=== PATIENT | male | born 1995 | race Caucasian/White ===

== ENCOUNTER 2017-11-30 14:09 | Emergency (ER) | payer MEDICAID ==
[~2017-11-30] VITALS: Ht 154.9 cm; Wt 145.1 kg
[2017-11-30 14:29] VITALS: BP 138/78
--- NOTE | 2017-11-30 14:32 | NUR ---
PT TRIAGED. AMBULATED TO ER LOBBY WAITING FOR A BED. ERMD NOTIFIED OF PATIENT STATUS.
--- NOTE | 2017-11-30 16:05 | NUR ---
PT TRIAGED, WAITING FOR ER BED. ERMD AWARE OF PATIENT STATUS.
--- NOTE | 2017-11-30 18:05 | NUR ---
PT TRIAGED. WAITING FOR ER BED. ERMD NOTIFIED OF PATIENT STATUS.
--- NOTE | 2017-11-30 18:49 | NUR ---
PATIENT LEFT WITHOUT BEING SEEN BY DR. VALLEJO. NO FURTHER CARE PROVIDED FOR PATIENT.
== END 2017-11-30 18:49 | disposition left against medical advice (07) ==
LOC: MED 14:09
DX: R11.10 Vomiting, unspecified (principal); Z53.21 Procedure and treatment not carried out due to patient leaving prior to being seen by health care provider

== ENCOUNTER 2018-06-09 11:13 | Emergency (ER) | payer MEDICARE ==
[~2018-06-09] VITALS: Ht 154.9 cm; Wt 145.6 kg
[2018-06-09 11:27] VITALS: BP 179/79
[2018-06-09] MEDS: PANTOPRAZOLE 40 MG TABEC PO ONE (12:39)
[2018-06-09 13:16] LABS: HEMATOCRIT 42.5 % (36-52); MEAN CORPUSCULAR HEMOGLOBIN 28 pg (27-31); MEAN CORPUSCULAR HGB CONC 33 g/dL (33-37); MEAN CORPUSCULAR VOLUME 84.6 fL (80-94); PLATELET COUNT (AUTO) 152 K/uL (140-450); RED BLOOD CELL COUNT(AUTO) 5.02 MIL/uL (4.20-6.10); RED CELL DISTRIBUTION WIDTH 15.2 % (11.6-13.7); WHITE BLOOD COUNT (AUTO) 6.7 K/uL (4.8-10.8)
[2018-06-09 13:33] LABS: LYMPHOCYTES % (MANUAL) 22 % (20-46); MONOCYTES % (MANUAL) 9 % (5-12)
[2018-06-09 13:37] LABS: ALBUMIN 3.4 g/dL (3.4-5.0); ANION GAP 5.4 (8-16); CREATININE 0.9 mg/dL (0.7-1.3); POTASSIUM 3.4 mmol/L (3.5-5.1); TOTAL BILIRUBIN 1.3 mg/dL (0.0-1.0)
[2018-06-09 14:48] LABS: BILIRUBIN,URINE 2+ (NEGATIVE); BLOOD, URINE NEGATIVE (NEGATIVE); LEUKOCYTE ESTERASE ,URINE 1+ (NEGATIVE); NITRITE, URINE NEGATIVE (NEGATIVE); PH,URINE 6.5 (5.0-9.0); UGLUCOSE NEGATIVE (NEGATIVE)
[2018-06-09 14:56] LABS: APPEARANCE,URINE CLOUDY (CLEAR); COLOR,URINE AMBER (YELLOW)
[2018-06-09 14:57] LABS: RBC,URINE NONE SEEN /HPF (0-5)
[2018-06-09 14:58] LABS: WBC,URINE 20-60 /HPF (0-5)
[2018-06-09 16:27] VITALS: BP 110/53
== END 2018-06-09 16:26 | disposition home or self-care (01) ==
LOC: MED 11:13
DX: K29.70 Gastritis, unspecified, without bleeding (principal); L03.115 Cellulitis of right lower limb; N39.0 Urinary tract infection, site not specified
CPT/HCPCS: 36415; 76705; 80053; 81001; 83605; 83690; 85025; 87040; 87086; 99285; Q0092

== ENCOUNTER 2018-10-11 12:31 | Emergency (ER) | payer MEDICARE ==
[~2018-10-11] VITALS: Ht 160 cm; Wt 149.2 kg
[2018-10-11 13:03] VITALS: BP 135/67
[2018-10-11] MEDS ORDERED: CLINDAMYCIN 600 MG/4 ML VIAL IM ONE (13:50)
[2018-10-11] MEDS ORDERED: NEOMYCIN/POLYMYXIN/BACITRACIN 0.9 GM/1 PKT TP ONE (13:50)
[2018-10-11] MEDS ORDERED: DEXAMETHASONE 10 MG/ML VIAL IM ONE (13:50)
[2018-10-11] MEDS ORDERED: IBUPROFEN 600 MG TAB PO ONE (13:50)
[2018-10-11] MEDS ORDERED: traMADol 50 MG TAB PO ONE (13:50)
--- NOTE | 2018-10-11 14:03 | NUR ---
PT AMBULATES TO BED 5 FROM [facility]
--- NOTE | 2018-10-11 14:15 | NUR ---
PT IS A A 23 Y/O MALE WHO PRESENTS TO THE ED C/O FINGER PAIN. PT STATES THAT IT HAS BEEN RED AND SWOLLEN X2 DAYS. PT REPORTS 6/10 ACHING FINGER PAIN THAT DOES NOT RADIATE. PT DENIES CP, SOB, N/V/D. CMS INTACT. PT AWAKE AND ALERT, RR EVEN/UNLABORED. PT REPOSITIONED FOR COMFORT, BED IN LOWEST POSITION. ER MD DR. HOLDER NOTIFIED. WILL CONTINUE TO MONITOR. HX--TRANSGENDER RX---TESTOSTERONE
[2018-10-11 14:52] VITALS: BP 140/72
--- NOTE | 2018-10-11 14:52 | NUR ---
Patient discharged with v/s stable. Written and verbal after care instructions given and explained. Patient alert, oriented and verbalized understanding of instructions. Ambulatory with steady gait. All questions addressed prior to discharge. ID band removed. Patient advised to follow up with PMD. Rx of CLINDAMYCIN ANS VOLTAREN XR given. Patient educated on indication of medication including possible reaction and side effects. Opportunity to ask questions provided and answered.
== END 2018-10-11 14:52 | disposition home or self-care (01) ==
LOC: MED 12:31
DX: L03.011 Cellulitis of right finger (principal)
CPT/HCPCS: 90471; 90715; 96372; 99284; J1100; J3490

== ENCOUNTER 2019-08-29 16:17 | Emergency (ER) | payer BC, MEDICARE ==
[~2019-08-29] VITALS: Ht 157.5 cm; Wt 155.1 kg
[2019-08-29 16:24] VITALS: BP 114/72
[2019-08-29] MEDS ORDERED: HYDROcodone/APAP 5/325 MG 1 TAB TAB PO ONE (17:25)
[2019-08-29 17:33] VITALS: BP 114/72
== END 2019-08-29 17:34 | disposition home or self-care (01) ==
LOC: MED 16:17
DX: M25.562 Pain in left knee (principal); G89.29 Other chronic pain; Z88.0 Allergy status to penicillin
CPT/HCPCS: 99283

== ENCOUNTER 2020-05-29 17:13 | Emergency (ER) | payer BC ==
[~2020-05-29] VITALS: Ht 157.5 cm; Wt 167.6 kg
[2020-05-29 18:00] VITALS: BP 140/66
--- NOTE | 2020-05-29 18:07 | NUR ---
PT AMB TO BED 11
--- NOTE | 2020-05-29 18:10 | NUR ---
SC/O DIARRHEA 5 EPISODES X TODAY.PT AOX4 , AFIBRILE, AMBULATORY WITH STEADY GAIT , MOIST BUCCAL MUCUS MEMBRANE , DENIES N/V. 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
--- NOTE | 2020-05-29 18:17 | NUR ---
DR BERRY AT BEDSIDE EVALUATING PT.
[2020-05-29 18:30] VITALS: BP 140/66
--- NOTE | 2020-05-29 18:30 | NUR ---
Patient discharged with v/s stable. Written and verbal after care instructions given and explained viral gastritis. Patient alert, oriented and verbalized understanding of instructions. Ambulatory with steady gait. All questions addressed prior to discharge. ID band removed. Patient advised to follow up with PMD. Rx of imodium given. Patient educated on indication of medication including possible reaction and side effects. Opportunity to ask questions provided and answered.
== END 2020-05-29 18:30 | disposition home or self-care (01) ==
LOC: MED 17:13
DX: R19.7 Diarrhea, unspecified (principal); F17.210 Nicotine dependence, cigarettes, uncomplicated; K21.9 Gastro-esophageal reflux disease without esophagitis; Z88.0 Allergy status to penicillin
CPT/HCPCS: 99282